=== PATIENT | male | born 1990 | race Caucasian/White ===

== ENCOUNTER 2024-09-04 23:08 | Emergency (ER) | payer MEDICAID ==
[~2024-09-04] VITALS: Ht 165.1 cm; Wt 69.0 kg
[2024-09-04 23:17] VITALS: BP 96/57; PULSE 61; RESP 16; TEMP 98.6; O2SAT 99
[2024-09-05] MEDS ORDERED: TRAZ-256 PO (00:08)
[2024-09-05] MEDS: traZODone 50mg tablet PO ONE (01:06)
== END 2024-09-05 01:11 | disposition home or self-care (01) ==
LOC: ER 23:09
DX: Z76.0 Encounter for issue of repeat prescription (principal); Z88.0 Allergy status to penicillin
CPT/HCPCS: 99281; 99283